=== PATIENT | male | born 1965 ===

== ENCOUNTER 2017-10-31 09:26 | Day surgery (SDC) | payer OTHER ==
[~2017-10-31 09:26] MED LIST: ACIDOPHILUS1 EAC1 PO; AMOX1TAB12 PO; ATORVASTATIN CA20 MG PO; AVAPRO75 MG PO; GILTUSS TR TAB1 EACH PO; MEDROLPACK PO; NASONEX17 GM TOP
== END 2017-10-31 18:30 | disposition home or self-care (01) ==
LOC: CIR.AMB 09:26
DX: K42.9 Umbilical hernia without obstruction or gangrene (principal)

== ENCOUNTER 2017-12-30 08:21 | Outpatient (CLI) | payer OTHER ==
[~2017-12-30 08:21] MED LIST changes: +ETODOLAC400 MG PO
== END 2017-12-30 08:38 | disposition home or self-care, planned readmission (81) ==
LOC: SONOGRAMA 08:21
DX: M77.51 Other enthesopathy of right foot and ankle (principal); M77.52 Other enthesopathy of left foot and ankle; M72.2 Plantar fascial fibromatosis